=== PATIENT | male | born 1980 | race Hispanic/Latino ===

== ENCOUNTER 2017-06-03 23:31 | Emergency (ER) | payer SELFPAY ==
[2017-06-03] MEDS ORDERED: Sodium Chloride 0.9% 1,000 ML IV STA (23:59)
[2017-06-04] MEDS ORDERED: Iohexol 240 (50 ml) PO ONE (00:03)
--- NOTE | 2017-06-04 00:14 | ED PDOC ---
HPI: Abdomen Chief Complaint (Provider): abdominal pain, vomitting, diarrhea History Per: Patient Onset/Duration Of Symptoms: Hrs (7) Current Symptoms Are (Timing): Still Present Location Of Pain/Discomfort: Diffuse, Epigastric Quality Of Discomfort: Cramping, "Pain" Associated Symptoms: Chills, Nausea, Vomiting, Diarrhea. denies: Urinary Symptoms Exacerbating Factors: None Alleviating Factors: None Last Bowel Movement: Today <Yee Charles - Last Filed: 06/04/17 04:34> <Oscar Lemus - Last Filed: 06/06/17 03:41> Time Seen by Provider: 06/03/17 23:42 Chief Complaint (Nursing): Abdominal Pain Additional Complaint(s): Mert Yoder is a 36 yo male with no significant medical history who presented to the ED on 06/03/2017 due to abdominal pain, diarrhea, and vomiting for the past 6-7 hours. States that around 5 pm, he began to have bouts of diarrhea every 30 minutes and vomiting every 30 minutes. He describes the vomitus as nonbloody, and consisting of dark food particles at first, but most recent episodes consisted of vomiting the water he had drank, and dry heaving. He describes the diarrhea as watery, denies that there is blood or pus in it. Did not try any medicine at home, considered pepto-bismol but didn't take it. No alleviating/aggravating factors. Had a similar episode in 2012, was told at the time it was gastroenteritis. Lives alone, states parents he sees often had recent cold but no GI symptoms. Went on date earlier in the day, states that he spoke to girl from date who also stated she "doesn't feel well," but states she did not report similar symptoms in nature and/or severity. PMH: gastroenteritis 2012 Meds: none Allergies: NKDA Past surg hx: none Social hx: former smoker for 10 yrs, quit 2-3 yrs ago. EtOH: 1-2 drinks 2-3 times a week, socially. Denies drug use. (Yee Charles) Past Medical History - Medical History PMH: Gastritis - Surgical History Surgical History: No Surg Hx - Family History Family History: States: Unknown Family Hx - Living Arrangements Living Arrangements: Alone - Social History Ex-Smoker (has not smoked in the last 12 months): Yes (quit 2-3 yrs ago) Alcohol: Social Drugs: Denies <Yee Charles - Last Filed: 06/04/17 04:34> <Oscar Lemus - Last Filed: 06/06/17 03:41> Vital Signs: Last Vital Signs Temp 98.7 F 06/04/17 04:19 Pulse 88 06/04/17 04:19 Resp 17 06/04/17 04:19 BP 122/69 06/04/17 04:19 Pulse Ox 100 06/04/17 04:34 - Allergies Allergies/Adverse Reactions: Allergies Allergy/AdvReac Type Severity Reaction Status Date / Time No Known Allergies Allergy Verified 06/03/17 23:33 Review of Systems Constitutional: Positive for: Fever (subjective), Chills, Weakness ENT: Negative for: Throat Pain Cardiovascular: Negative for: Chest Pain Respiratory: Negative for: Cough Gastrointestinal: Positive for: Nausea, Vomiting, Abdominal Pain, Diarrhea, Hematemesis. Negative for: Hematochezia Genitourinary Male: Negative for: Dysuria Skin: Negative for: Rash, Lesions Neurological: Negative for: Numbness <Yee Charles - Last Filed: 06/04/17 04:34> Physical Exam - Physical Exam Appears: Positive for: Uncomfortable, In Acute Distress Head Exam: Positive for: NORMAL INSPECTION Skin: Positive for: Normal Color, Warm, Dry Eye Exam: Positive for: Normal appearance Neck: Positive for: Painless ROM, Supple Cardiovascular/Chest: Positive for: Regular Rate, Rhythm, Chest Non Tender. Negative for: Murmur Respiratory: Positive for: Normal Breath Sounds. Negative for: Accessory Muscle Use, Respiratory Distress Gastrointestinal/Abdominal: Positive for: Bowel Sounds, Soft, Tenderness ( diffusely, but more concentrated in epigastric area) Back: Positive for: Normal Inspection Extremity: Negative for: Tenderness, Pedal Edema, Calf Tenderness, Deformity Neurologic/Psych: Positive for: Alert, Oriented <MelvinYee - Last Filed: 06/04/17 04:34> - Laboratory Results Result Diagrams: 06/04/17 00:20 06/04/17 00:20 - ECG O2 Sat by Pulse Oximetry: 100 <Yee Charles - Last Filed: 06/04/17 04:34> - Laboratory Results Result Diagrams: 06/04/17 00:20 06/04/17 00:20 <MariahOscar Y - Last Filed: 06/06/17 03:41> Medical Decision Making <Yee Charles - Last Filed: 06/04/17 04:34> <MariahOscar Padron - Last Filed: 06/06/17 03:41> Medical Decision Makin:00 CBC CMP Abd and Pelvis CT w/ PO and IV contrast Pepcid 20 mg IVP Morphine 4mg IVP Zofran 4mg IVP NS 1L @ 999ml/hr (Yee Charles) Patient presents with abdominal pain and vomiting. Flu swab negative. 0318 CT FINDINGS: Lower thorax: There is subpleural atelectasis of the dependent portions of the lungs. ABDOMEN: Liver: There are no focal liver lesions present. Gallbladder and bile ducts: The gallbladder is normal. There is no evidence of biliary ductal dilation. No calcified stones. Pancreas: Normal. No mass. No ductal dilation. Spleen: The spleen is normal. Adrenals: The adrenal glands are normal. Kidneys and ureters: The kidneys are normal. No hydronephrosis. Stomach and bowel: The stomach is normal. The duodenum is unremarkable. There is fluid filling the small and proximal large bowel compatible with diarrheal illness.No mucosal thickening. Appendix: A normal appendix is identified. PELVIS: Bladder: The bladder is normal. Reproductive: Unremarkable as visualized. ABDOMEN and PELVIS: Intraperitoneal space: Normal. No free air. No significant fluid collection. Bones/joints: No acute fracture. No dislocation. Soft tissues: Normal. Vasculature: Normal. No abdominal aortic aneurysm. Lymph nodes: Normal. No enlarged lymph nodes. IMPRESSION: No acute abdominopelvic pathology. Patient is stable for discharge home. feels better. tolerated po pt felt better Scribe Attestation: Documented by Shantelle Harden acting as a scribe for Oscar Lemus MD. Scribe Attestation: All medical record entries made by the Scribe were at my direction and personally dictated by me. I have reviewed the chart and agree that the record accurately reflects my personal performance of the history, physical exam, medical decision making, and the department course for this patient. I have also personally directed, reviewed, and agree with the discharge instructions and disposition. (Oscar Lemus) Disposition - Patient ED Disposition Is Patient to be Admitted: No - Disposition Disposition: Routine/Home Disposition Time: 04:33 <Yee Charles - Last Filed: 06/04/17 04:34> <Oscar Lemus - Last Filed: 06/06/17 03:41> - Clinical Impression Clinical Impression: Abdominal pain - Disposition Referrals: [facility] [Outside] [facility] [Outside] Condition: IMPROVED Additional Instructions: follow up with your primary doctor in 1-2 days return to the ED with any worsening or concerning symptoms. Instructions: Abdominal Pain (ED) Forms: [facility] ([place]), [facility] ED School/Work Excuse
[2017-06-04] MEDS ORDERED: Morphine 4 MG/ML VIAL IV ONE (00:30)
[2017-06-04 00:47] LABS: BASO % 0.1 % (0.0-2.0); EOS % 0.2 % (0.0-4.0); HEMOGLOBIN 15.9 g/dL (12.0-18.0); LYMPH # 0.6 K/uL (1.0-4.3); LYMPH % 3.4 % (20.0-40.0); MEAN CELL VOLUME 85.8 fl (80.0-94.0); MEAN CORPUSCULAR HEMOGLOBIN 28.2 pg (27.0-31.0); MEAN CORPUSCULAR HGB CONC 32.8 g/dL (33.0-37.0); MEAN PLATELET VOLUME 10.2 fl (7.2-11.7); MONO # 0.5 K/uL (0.0-0.8); MONO % 2.9 % (0.0-10.0); NEUT # 17.4 K/uL (1.8-7.0); NEUT % 93.4 % (50.0-75.0); NRBC % 0.2 % (0.0-0.0); PLATELET COUNT 246 K/uL (130-400); RBC 5.64 Mil/uL (4.40-5.90); RED CELL DISTRIBUTION WIDTH 12.9 % (11.5-14.5); WHITE BLOOD COUNT 18.6 K/uL (4.8-10.8)
[2017-06-04 00:54] LABS: ALB/GLOB RATIO 1.3 (1.0-2.1); ALBUMIN 4.9 g/dL (3.5-5.0); ALT/SGPT 43 U/L (21-72); AST/SGOT 28 U/L (17-59); BLOOD UREA NITROGEN 21 mg/dl (9-20); CALCIUM 9.8 mg/dL (8.4-10.2); GFR AFRICAN-AMERICAN > 60; GFR NON-AFRICAN AMERICAN > 60
[2017-06-04 01:24] LABS: BANDS 6 % (0-2); LYMPHOCYTE 3 % (20-50); MONOCYTE 1 % (0-10); NEUTROPHIL 90 % (42-75); TOTAL CELLS COUNTED 100
[2017-06-04 01:25] LABS: ANISOCYTOSIS SLIGHT; PLATELET ESTIMATE NORMAL (NORMAL)
[2017-06-04] MEDS ORDERED: Sodium Chloride 0.9% 50 ML IV ONE (02:20)
[2017-06-04] MEDS ORDERED: Iohexol 300 100 ML IJ ONE (02:20)
[2017-06-04 04:20] VITALS: BP 122/69; PULSE 88; RESP 17; TEMP 98.7
[2017-06-04 04:34] VITALS: O2SAT 100
--- NOTE | 2017-06-04 10:17 | CT ---
PROCEDURE: CT Abdomen and Pelvis with contrast HISTORY: abd pain COMPARISON: None. TECHNIQUE: Following oral and intravenous contrast administration, a CT examination of the abdomen and pelvis performed from the domes of the diaphragms to the symphysis pubis with reformatted datasets provided not only axial but also sagittal and coronal series. Contrast dose: Omnipaque 300, 95 cc Radiation dose: Total exam DLP = 899.33 mGy-cm. This CT exam was performed using one or more of the following dose reduction techniques: Automated exposure control, adjustment of the mA and/or kV according to patient size, and/or use of iterative reconstruction technique. FINDINGS: LOWER THORAX: Trace bilateral basilar dependent atelectasis identified with lung bases otherwise unremarkable appearing. LIVER: Unremarkable. No gross lesion or ductal dilatation. GALLBLADDER AND BILE DUCTS: Unremarkable. PANCREAS: Unremarkable. No gross lesion or ductal dilatation. SPLEEN: Unremarkable. ADRENALS: Unremarkable. No mass. KIDNEYS AND URETERS: Unremarkable. No hydronephrosis. No solid mass. VASCULATURE: Unremarkable. No aortic aneurysm. BOWEL: The stomach is moderately distended with oral contrast material with oral contrast not present in the small or large bowel. Air-fluid levels scattered throughout the large bowel suggesting possible diarrhea. No bowel obstruction is appreciated. Gastric outlet obstruction is not definitively shown or excluded versus potential limited gastroparesis. Clinically correlate further. APPENDIX: Normal appendix. PERITONEUM: Unremarkable. No free fluid. No free air. LYMPH NODES: Unremarkable. No enlarged lymph nodes. BLADDER: Urinary bladder is distended but otherwise unremarkable. REPRODUCTIVE: Unremarkable. BONES: No acute fracture. OTHER FINDINGS: None. IMPRESSION: Potential diarrhea. No bowel obstruction measure edema, ascites or free intrarenal gas. The stomach is distended with retained oral contrast material moderately which is nonspecific. Consider potential outlet obstruction or gastroparesis nevertheless, though neither are favored. Concordant preliminary report from [facility], 06/04/2017.
== END 2017-06-04 04:45 | disposition home or self-care (01) ==
LOC: H.ER 23:31
DX: R10.13 Epigastric pain (principal); R11.2 Nausea with vomiting, unspecified; R19.7 Diarrhea, unspecified
CPT/HCPCS: 74177; 80053; 85025; 87804; 96374; 99282; J2270; J2405; J7040; Q9966; Q9967